=== PATIENT | male | born 1990 | race Caucasian/White ===

== ENCOUNTER 2017-04-23 21:30 | Emergency (ER) | payer SELFPAY ==
--- NOTE | 2017-04-23 21:40 | PDOC ---
History of Present Illness - History of Present Illness Initial Comments: 04/23/17 21:44 The patient is a 26 year old male, with no significant past medical history, who presents to the emergency department with an abscess to his left posterior neck after getting a haircut 2 days ago. The patient states he noticed a pimple to the back of his neck yesterday and attempted to pop the pimple. He reports today the pimple has increased in size and become painful. The patient lives in [place] and is currently visiting his [id number] in the neighborhood. He denies chest pain, shortness of breath, headache and dizziness. He denies fever, chills, nausea, vomit, diarrhea and constipation. He denies dysuria, frequency, urgency and hematuria. Allergies: NKDA <Cecile Menjivar - Last Filed: 04/23/17 21:44> <Robson Woodward - Last Filed: 04/24/17 03:50> - General Chief Complaint: Pain, Acute Stated Complaint: INGROWN HAIR BACK OF NECK POST HAIRCUT Past History <Cecile Menjivar - Last Filed: 04/23/17 21:44> - Past Medical History Other medical history: DENIES - Immunization History Immunization Up to Date: No - Psycho/Social/Smoking Cessation Hx Anxiety: No Suicidal Ideation: No Smoking History: Never smoked Have you smoked in the past 12 months: No Information on smoking cessation initiated: No Hx Alcohol Use: Yes (OCCAS) Drug/Substance Use Hx: No Substance Use Type: None <Robson Woodward - Last Filed: 04/24/17 03:50> - Past Medical History Allergies/Adverse Reactions: Allergies Allergy/AdvReac Type Severity Reaction Status Date / Time No Known Allergies Allergy Verified 04/23/17 21:31 Home Medications: Ambulatory Orders Sulfamethoxazole/Trimethoprim [Bactrim Ds Tablet] 2 each PO BID #40 tablet 04/23 Review of Systems - Review of Systems Able to Perform ROS?: Yes Comments:: 04/23/17 21:44 CONSTITUTIONAL: Absent: fever, chills, diaphoresis, generalized weakness, malaise, loss of appetite HEENT: Absent: rhinorrhea, nasal congestion, throat pain, throat swelling, difficulty swallowing, mouth swelling, ear pain, eye pain, visual Changes CARDIOVASCULAR: Absent: chest pain, syncope, palpitations, irregular heart rate, lightheadedness , peripheral edema RESPIRATORY: Absent: cough, shortness of breath, dyspnea with exertion, orthopnea, wheezing, stridor, hemoptysis GASTROINTESTINAL: Absent: abdominal pain, abdominal distension, nausea, vomiting, diarrhea, constipation, melena, hematochezia GENITOURINARY: Absent: dysuria, frequency, urgency, hesitancy, hematuria, flank pain, genital pain MUSCULOSKELETAL: Absent: myalgia, arthralgia, joint swelling SKIN: (+) progressing painful pimple to posterior neck. Absent: rash, itching, pallor HEMATOLOGIC/IMMUNOLOGIC: Absent: easy bleeding, easy bruising, lymphadenopathy, frequent infections ENDOCRINE: Absent: unexplained weight gain, unexplained weight loss, heat intolerance, cold intolerance NEUROLOGIC: Absent: headache, focal weakness or paresthesias, dizziness, unsteady gait, seizure, mental status changes, bladder or bowel incontinence PSYCHIATRIC: Absent: anxiety, depression, suicidal or homicidal ideation, hallucinations. <Cecile Menjivar - Last Filed: 04/23/17 21:44> *Physical Exam - Vital Signs Last Vital Signs Temp Pulse Resp BP Pulse Ox 98.6 F 114 H 16 143/98 99 04/23/17 21:33 04/23/17 21:33 04/23/17 21:33 04/23/17 21:33 04/23/17 21:33 - Physical Exam Comments: 04/23/17 21:45 GENERAL: Well developed, well nourished. Awake and alert. No acute distress. HEENT: Normocephalic, atraumatic. PERRLA, EOMI. No conjunctival pallor. Sclera are non- icteric. Moist mucous membranes. Oropharynx is clear. NECK: Supple. Full ROM. No JVD. Carotid pulses 2+ and symmetric, without bruits. No thyromegaly. No lymphadenopathy. CARDIOVASCULAR: Regular rate and rhythm. No murmurs, rubs, or gallops. Distal pulses are 2+ and symmetric. MUSCULOSKELETAL Normal range of motion at all joints. No bony deformities or tenderness. No CVA tenderness. EXTREMITIES: No cyanosis. No clubbing. No edema. No calf tenderness. SKIN: (+) 3 cm abscess partially opened on the left posterior neck. Warm and dry. Normal capillary refill. No rashes. No jaundice. NEUROLOGICAL: Alert, awake, appropriate. Cranial nerves 2-12 intact. No deficits to light touch and temperature in face, upper extremities and lower extremities. No motor deficits in the in face, upper extremities and lower extremities. Normoreflexic in the upper and lower extremities. Normal speech. Toes are down- going bilaterally. Gait is normal without ataxia. PSYCHIATRIC: Cooperative. Good eye contact. Appropriate mood and affect. <Cecile Menjivar - Last Filed: 04/23/17 21:44> - Vital Signs Last Vital Signs Temp Pulse Resp BP Pulse Ox 98.6 F 114 H 16 143/98 99 04/23/17 21:33 04/23/17 21:33 04/23/17 21:33 04/23/17 21:33 04/23/17 21:33 <Robson Woodward - Last Filed: 04/24/17 03:50> Medical Decision Making - Medical Decision Making 04/24/17 03:50 i+d with evacuation of pus a/p abscess with some surrounding cellulitis abx <Robson Woodward - Last Filed: 04/24/17 03:50> *DC/Admit/Observation/Transfer - Attestations Scribe Attestion: 04/23/17 21:46 Documentation prepared by Cecile Menjivar, acting as medical billing representative for Robson Woodward MD <Cecile Menjivar - Last Filed: 04/23/17 21:44> <Robson Woodward - Last Filed: 04/24/17 03:50> Diagnosis at time of Disposition: Abscess - Discharge Dispostion Disposition: HOME Condition at time of disposition: Stable - Prescriptions Prescriptions: Sulfamethoxazole/Trimethoprim [Bactrim Ds Tablet] 2 each PO BID #40 tablet - Patient Instructions Printed Discharge Instructions: DI for Incision and Drainage of a Skin Abscess Additional Instructions: Return to ER on Monday for reevaluation
[2017-04-23 21:45] VITALS: BP 143/98; PULSE 114; TEMP 98.6; BMI 29.0
[2017-04-23] MEDS ORDERED: SULFAMETHOXAZOLE/TRIMETHOPRIM 800MG/160MG D.S. TABLET PO ONE (21:46)
[2017-04-23] MEDS ORDERED: SULFAMETHOXAZOLE/TRIMETHOPRIM 800MG/160MG D.S. TABLET ONE (22:01)
== END 2017-04-23 22:05 | disposition home or self-care (01) ==
LOC: FER 21:30
PROC: 0H94XZZ Drainage of Neck Skin, External Approach (ICD-10-PCS; principal; 2017-04-23)
DX: L02.11 Cutaneous abscess of neck (principal)
CPT/HCPCS: 99281-25

== ENCOUNTER 2017-04-25 12:23 | Emergency (ER) | payer SELFPAY ==
[2017-04-25 12:27] VITALS: BP 125/80; PULSE 86; TEMP 98; BMI 29.0
--- NOTE | 2017-04-25 12:52 | PDOC ---
History of Present Illness - General Chief Complaint: Revisit,Wound Recheck Stated Complaint: WOUND CHECK Time Seen by Provider: 04/25/17 12:38 History Source: Patient Exam Limitations: No Limitations - History of Present Illness Initial Comments: 04/25/17 12:52 This patient is a 26-year-old male who was seen in the emergency department 2 nights ago for abscesses likely due to an ingrown hair Wound incised and drained with return of purulent material Pt has applied warm compresses to the area Packing left in place Pt presents today for a wound check No fevers NO chills Tolerating medications PMH: denies PSH: denies Meds: denies ALL: NKDA Social: GENERAL/CONSTITUTIONAL: No: fever, chills, weakness, loss of appetite. HEAD, EYES, EARS, NOSE AND THROAT: Yes: abscess which was incised and drained SKIN: Yes: wound open, with packing in place No: lesions, pallor, rash or easy bruising. NEUROLOGIC: No: headache GENERAL: The patient is in no acute distress. HEAD: Normal with no signs of trauma. SKIN: Left occipital wound measuring approximately 1 cm, packing in place All remaining Purulent material expressed from wound Area surrounding wound is indurated Not warm, minimally tender to palpation 04/25/17 13:09 Past History - Past Medical History Allergies/Adverse Reactions: Allergies Allergy/AdvReac Type Severity Reaction Status Date / Time No Known Allergies Allergy Verified 04/25/17 12:24 Home Medications: Ambulatory Orders Sulfamethoxazole/Trimethoprim [Bactrim Ds Tablet] 2 each PO BID #40 tablet 04/23 Other medical history: DENIES - Immunization History Immunization Up to Date: No - Psycho/Social/Smoking Cessation Hx Anxiety: No Suicidal Ideation: No Smoking History: Never smoked Have you smoked in the past 12 months: No Information on smoking cessation initiated: No Hx Alcohol Use: No Drug/Substance Use Hx: No Substance Use Type: None *Physical Exam - Vital Signs Last Vital Signs Temp Pulse Resp BP Pulse Ox 98 F 86 18 125/80 99 04/25/17 12:23 04/25/17 12:23 04/25/17 12:23 04/25/17 12:23 04/25/17 12:23 Medical Decision Making - Medical Decision Making 04/25/17 12:52 04/25/17 13:11 Expressed an additional 2-3 cc purulent material from the wound No surrounding erythema Wound re packed as it appears to still need to drain Pt to return to the ER in 2-3 days for re evaluation Pt counselled to apply warm compressed *DC/Admit/Observation/Transfer Diagnosis at time of Disposition: Abscess - Discharge Dispostion Disposition: HOME Condition at time of disposition: Stable Admit: No - Referrals Referrals: Lamberto Jones MD [Staff Physician] - - Patient Instructions Printed Discharge Instructions: DI for Skin Abscess, DI for Incision and Drainage of a Skin Abscess Additional Instructions: Thank you for coming to the ER today Please continue applying warm compressed to the area (you can use a warm rag) you can do this three times per day Please monitor yourself for fevers If you get a fever, you must come back to the ER Please continue taking your medications as prescribed Please change packing daily (if you can) If you notice that there is more pus, or the skin around the wound opening is red, please come in to be evaluated as soon as you can Print Language: MOHAWK - Post Discharge Activity Work/School Note: Back to Work
== END 2017-04-25 13:25 | disposition home or self-care (01) ==
LOC: FER 12:23
DX: L02.11 Cutaneous abscess of neck (principal)
CPT/HCPCS: 99282-25

== ENCOUNTER 2017-04-26 23:33 | Inpatient (IN) | payer SELFPAY ==
[2017-04-26 23:39] VITALS: BMI 28.2
--- NOTE | 2017-04-26 23:44 | PDOC ---
History of Present Illness - General Chief Complaint: Wound Stated Complaint: NECK WOUND Time Seen by Provider: 04/26/17 23:38 History Source: Patient Exam Limitations: No Limitations - History of Present Illness Initial Comments: 04/27/17 00:02 This is a 26-year-old male who comes in for a wound check. Patient was here 4 days ago and had incision and drainage of a abscess on his posterior neck. Patient returned 2 days later for removal of the packing and was repacked. Patient now comes back complaining of worsening pain, fever, chills and purulent discharge from the abscess cavity. Patient denies any headache or stiff neck. However history is somewhat limited because patient is using a [employer]. PAST MEDICAL HISTORY: no significant history PAST SURGICAL HISTORY: no significant history FAMILY HISTORY: no pertinant history SOCIAL HISTORY: Pt lives with family and is employed. MEDICATIONS: reviewed ALLERGIES: As per nursing notes Review of Systems General: + fevers and chills, no weakness, no weight loss HEENT: No change in vision. No sore throat,. No ear pain, neck abscess post I and D CardioVascular: No chest pain or shortness of breath Respiratory:No cough, or wheezing. Gastrointestinal: no nausea, vomitting, diarrhea or constipation, No rectal bleeding Genitourinary: No dysuria, hematuria, or frequency Musculoskeletal: No joint or muscle pain or swelling Neurologic: No headache, vertigo, dizziness or loss of consciousness Psychiatric: nor depression Skin: No rashes or easy bruising Endocrine: no increased thirst or abnormal weight change Allergic: no skin or latex allergy All other systems reviewed and normal GENERAL: The patient is awake, alert, and fully oriented, in no acute distress. HEAD: Normal with no signs of trauma. NECK:There is an open wound to the posterior neck that has purulent wound margins and purulence from the abscess cavity. The surrounding area has moderate amount of erythema with tenderness on palpation. EYES: Pupils equal, round and reactive to light, extraocular movements intact, sclera anicteric, conjunctiva clear. EXTREMITIES: Normal range of motion, no edema. NEUROLOGICAL: Normal speech, normal gait. PSYCH: Normal mood, normal affect. SKIN: Warm, Dry, normal turgor, no rashes or lesions noted. 04/27/17 01:42 Assessment plan: This is a 26-year-old male who comes in complaining of a abscess in his neck that was incised and drained 4 days ago, patient returned 2 days ago and check abscess cavity was repacked and here at returns again today. Now patient is complaining of fevers or increasing pain and that the year is a moderate amount of purulent in the abscess cavity and is surrounding cellulitis of the neck. Given the location of the infection I was concerned so patient had a CAT scan done of the neck to rule out deep space infection. There is no evidence of deeper tracking of the abscess and no collection in the deep spaces of the neck. Patient however does have a elevated white count. And he has been on antibiotics for 4 days and failed outpatient treatment. Patient will be admitted to an inpatient bed. Discussed admission with Dr. Holder. Past History - Past Medical History Allergies/Adverse Reactions: Allergies Allergy/AdvReac Type Severity Reaction Status Date / Time No Known Allergies Allergy Verified 04/25/17 12:24 Home Medications: Ambulatory Orders Sulfamethoxazole/Trimethoprim [Bactrim Ds Tablet] 2 each PO BID #40 tablet 04/23 - Immunization History Immunization Up to Date: No - Psycho/Social/Smoking Cessation Hx Anxiety: No Suicidal Ideation: No Smoking History: Unknown if ever smoked Have you smoked in the past 12 months: No Number of Cigarettes Smoked Daily: 0 Information on smoking cessation initiated: No Hx Alcohol Use: No Drug/Substance Use Hx: No Substance Use Type: None *Physical Exam - Vital Signs Last Vital Signs Temp Pulse Resp BP Pulse Ox 99.5 F 96 H 14 131/68 100 04/26/17 23:36 04/26/17 23:36 04/26/17 23:36 04/26/17 23:36 04/26/17 23:36 ED Treatment Course - LABORATORY CBC & Chemistry Diagram: 04/27/17 00:01 04/27/17 00:01 *DC/Admit/Observation/Transfer Diagnosis at time of Disposition: Cellulitis and abscess of neck - Discharge Dispostion Condition at time of disposition: Good Admit: Yes
[2017-04-26] MEDS ORDERED: VANCOMYCIN 1 GRAM (PRE-DOCKED) 1,000 MG/250 ML BAG IVPB ONE (23:48)
[2017-04-26] MEDS ORDERED: PIPERACILLIN/TAZOB 3.375 GM/50 ML PRE-DOCKED IVPB STA (23:49)
[2017-04-27] MEDS ORDERED: VANCOMYCIN 1,000 MG VIAL (RESTRICTED TO ID ONLY) ONE ×2 (00:13→00:14)
[2017-04-27] MEDS ORDERED: PIPERACILLIN/TAZOBACTAM 3.375 GM VIAL IVPB ONE (00:13)
[2017-04-27 01:21] LABS: BASOPHIL 0.6 % (0-2.0); MEAN CELL VOLUME 87.8 fl (80-96); MEAN PLT VOLUME 8.8 fl (7.5-11.1); NEUTROPHILS 50.3 % (42.8-82.8); PLATELET COUNT 313 K/MM3 (134-434); RDW 12.6 % (11.9-15.9); WHITE BLOOD COUNT 12.5 K/mm3 (4.0-10.0)
[2017-04-27 02:06] LABS: ANION GAP 11 (8-16); BILIRUBIN,TOTAL 0.2 mg/dL (0.2-1.0); CALCIUM 9.5 mg/dL (8.5-10.1); CO2 28 mmol/L (21-32); COCKROFT - GAULT 144.8; CREATININE 1.1 mg/dL (0.7-1.3); GLUCOSE,RANDOM 77 mg/dL (74-106); SGOT/AST 18 U/L (15-37); SGPT/ALT 46 U/L (12-78); TOT PROT 7.6 g/dl (6.4-8.2)
[2017-04-27 02:07] LABS: ALK PHOS 70 U/L (45-117)
[2017-04-27 08:39] LABS: MCH 28.9 pg (25.7-33.7); MCHC 33.1 g/dl (32.0-35.9); MEAN CELL VOLUME 87.5 fl (80-96); MEAN PLT VOLUME 8.4 fl (7.5-11.1); PLATELET COUNT 307 K/MM3 (134-434); RDW 11.8 % (11.9-15.9); WHITE BLOOD COUNT 9.5 K/mm3 (4.0-10.8)
[2017-04-27 08:45] LABS: ALBUMIN 3.7 g/dl (3.5-5.0); ALK PHOS 54 U/L (32-92); ANION GAP 7 (8-16); BILIRUBIN,TOTAL 0.5 mg/dl (0.2-1.0); CALCIUM 9.3 mg/dl (8.4-10.2); CO2 25 mmol/L (22-28); CREATININE 0.8 mg/dl (0.6-1.3); GLUCOSE,RANDOM 97 mg/dl (74-106); SGOT/AST 19 U/L (10-42); SGPT/ALT 33 U/L (10-40); TOT PROT 6.7 g/dl (6.4-8.3)
--- NOTE | 2017-04-27 12:06 | CONSULT ---
Consult Consult Specialty:: infectious diseases Referred by:: Reason for Consultation:: neck abscess - History of Present Illness Chief Complaint: neck swelling History of Present Illness: 6-year-old male who comes in for a wound check. Patient was here 4 days ago and had incision and drainage of a abscess on his posterior neck. Patient returned 2 days later for removal of the packing and was repacked. Patient now comes back complaining of worsening pain, fever, chills and purulent discharge from the abscess cavity. Patient denies any headache or stiff neck. patients dressing removed and purulent discharge noted also noted his initial start of the problems - History Source History Provided By: Patient, Medical Record Limitations to Obtaining History: Language Barrier - Alcohol/Substance Use Hx Alcohol Use: No - Smoking History Smoking history: Unknown if ever smoked Have you smoked in the past 12 months: No Aproximately how many cigarettes per day: 0 Home Medications - Allergies Allergies/Adverse Reactions: Allergies Allergy/AdvReac Type Severity Reaction Status Date / Time No Known Allergies Allergy Verified 04/25/17 12:24 - Home Medications Home Medications: Ambulatory Orders Sulfamethoxazole/Trimethoprim [Bactrim Ds Tablet] 2 each PO BID #40 tablet 04/23 Review of Systems - Review of Systems Constitutional: reports: No Symptoms Eyes: reports: No Symptoms HENT: reports: No Symptoms Neck: reports: Tenderness, Other (abscess on the post part of the neck) Cardiovascular: reports: No Symptoms Respiratory: reports: No Symptoms Gastrointestinal: reports: No Symptoms Genitourinary: reports: No Symptoms Musculoskeletal: reports: No Symptoms Integumentary: reports: Erythema, Wound Neurological: reports: No Symptoms Hematology/Lymphatic: reports: No Symptoms Psychiatric: reports: No Symptoms Physical Exam Vital Signs: Vital Signs Temperature 98.6 F 04/27/17 05:47 Pulse Rate 68 04/27/17 05:47 Respiratory Rate 19 04/27/17 05:47 Blood Pressure 114/62 04/27/17 05:47 O2 Sat by Pulse Oximetry (%) 97 04/27/17 07:59 Constitutional: Yes: Well Nourished, Calm, Mild Distress Eyes: Yes: Conjunctiva Clear HENT: Yes: Atraumatic, Other Neck: Yes: Supple, Trachea Midline, Other (no tenderness while moving.no neck rigidity,no other) Cardiovascular: Yes: Regular Rate and Rhythm Respiratory: Yes: Regular, CTA Bilaterally Gastrointestinal: Yes: Normal Bowel Sounds, Soft Musculoskeletal: Yes: WNL Extremities: Yes: WNL Wound/Incision: Yes: Draining, Other (erythema and pain) Neurological: Yes: Alert, Oriented Psychiatric: Yes: Alert Labs: CBC, BMP 04/27/17 07:40 04/27/17 07:40 Imaging - Results Cat Scan: Report Reviewed, Image Reviewed Assessment/Plan after looking at the picture i think patient might have had infected cyst which he might have ruptured causing the infection abscess of post part of the neck wound infection plan will start on unasyn iv oral clinda by monday should be bale to switch to oral will evaluate and decide will need wound care rest as per osman
[2017-04-27] MEDS: CLINDAMYCIN HCL 150 MG CAPSULE (FP) PO SCH ×2 (13:01→17:48)
[2017-04-27] MEDS: AMPICILLIN NA/SULBACTAM NA 100 ML IVPB SCH ×2 (13:01→17:48)
--- NOTE | 2017-04-27 17:13 | HP ---
Admitting History and Physical - Primary Care Physician PCP: Heriberto Ellis - Admission History of Present Illness: 6-year-old male who comes in for a wound check. Patient was here 4 days ago and had incision and drainage of a abscess on his posterior neck. Patient returned 2 days later for removal of the packing and was repacked. Patient now comes back complaining of worsening pain, fever, chills and purulent discharge from the abscess cavity. Patient denies any headache or stiff neck. - Smoking History Smoking history: Unknown if ever smoked Have you smoked in the past 12 months: No Aproximately how many cigarettes per day: 0 - Alcohol/Substance Use Hx Alcohol Use: No Home Medications - Allergies Allergies/Adverse Reactions: Allergies Allergy/AdvReac Type Severity Reaction Status Date / Time No Known Allergies Allergy Verified 04/25/17 12:24 - Home Medications Home Medications: Ambulatory Orders Sulfamethoxazole/Trimethoprim [Bactrim Ds Tablet] 2 each PO BID #40 tablet 04/23 Physical Examination Vital Signs: Vital Signs Temperature 98.5 F 04/27/17 14:53 Pulse Rate 81 04/27/17 14:53 Respiratory Rate 18 04/27/17 14:53 Blood Pressure 134/63 04/27/17 14:53 O2 Sat by Pulse Oximetry (%) 100 04/27/17 14:53 Constitutional: Yes: No Distress HENT: Yes: Atraumatic Neck: Yes: Supple, Other (abcess at the back of neck on left side) Cardiovascular: Yes: Regular Rate and Rhythm Respiratory: Yes: CTA Bilaterally Gastrointestinal: Yes: Normal Bowel Sounds Musculoskeletal: Yes: WNL Extremities: Yes: WNL Edema: No Peripheral Pulses WNL: Yes Neurological: Yes: Alert, Oriented Labs: CBC, BMP 04/27/17 07:40 04/27/17 07:40 Problem List - Problems (1) Cellulitis and abscess of neck Assessment/Plan: iv abx send pus cxs id consult Code(s): L03.221 - CELLULITIS OF NECK L02.11 - CUTANEOUS ABSCESS OF NECK (2) Abscess Code(s): L02.91 - CUTANEOUS ABSCESS, UNSPECIFIED Assessment/Plan Laboratory Tests 04/27/17 04/27/17 04/27/17 00:01 00:01 07:40 WBC 12.5 H 9.5 RBC 5.18 4.95 Hgb 15.0 14.3 Hct 45.5 43.3 MCV 87.8 87.5 MCHC 33.0 33.1 RDW 12.6 11.8 L Plt Count 313 307 MPV 8.8 8.4 Neutrophils % 50.3 Lymphocytes % 32.2 Monocytes % 10.9 H Eosinophils % 6.0 H Basophils % 0.6 Sodium 141 Potassium 4.5 Chloride 102 Carbon Dioxide 28 Anion Gap 11 BUN 20 H Creatinine 1.1 Creat Clearance w eGFR > 60 Random Glucose 77 Calcium 9.5 Total Bilirubin 0.2 AST 18 ALT 46 Alkaline Phosphatase 70 Total Protein 7.6 Albumin 4.0 04/27/17 07:40 WBC RBC Hgb Hct MCV MCHC RDW Plt Count MPV Neutrophils % Lymphocytes % Monocytes % Eosinophils % Basophils % Sodium 138 Potassium 4.4 Chloride 106 Carbon Dioxide 25 Anion Gap 7 L BUN 19 H Creatinine 0.8 Creat Clearance w eGFR > 60 Random Glucose 97 Calcium 9.3 Total Bilirubin 0.5 AST 19 ALT 33 Alkaline Phosphatase 54 Total Protein 6.7 Albumin 3.7 Active Medications Generic Name Dose Route Start Last Admin Trade Name Freq PRN Reason Stop Dose Admin Acetaminophen 650 mg 04/27/17 01:50 Tylenol - PO Q6H PRN FEVER OR PAIN Clindamycin HCl 300 mg 04/27/17 12:15 04/27/17 13:01 Cleocin - PO 300 mg Q6HPO OLGA LIDIA Administration Ampicillin Sodium/Sulbactam Sodium 100 mls @ 200 mls/hr 04/27/17 12:15 13:01 Unasyn 3 Gm (Pre-Docked) IVPB 200 mls/hr Q8H-IV OLGA LIDIA Administration
[2017-04-28] MEDS: CLINDAMYCIN HCL 150 MG CAPSULE (FP) PO SCH ×5 (00:08→23:37)
[2017-04-28] MEDS: AMPICILLIN NA/SULBACTAM NA 100 ML IVPB SCH ×2 (01:16→09:41)
--- NOTE | 2017-04-28 15:24 | PN ---
Progress Note, Physician - Current Medication List Current Medications: Active Medications Acetaminophen (Tylenol -) 650 mg PO Q6H PRN PRN Reason: FEVER OR PAIN Clindamycin HCl (Cleocin -) 300 mg PO Q6HPO OLGA LIDIA Last Admin: 04/28/17 12:15 Dose: 300 mg Ampicillin Sodium/Sulbactam Sodium (Unasyn 3 Gm (Pre-Docked)) 100 mls @ 200 mls /hr IVPB Q8H-IV OLGA LIDIA Last Admin: 04/28/17 09:41 Dose: 200 mls/hr - Objective Vital Signs: Vital Signs Temperature 98.0 F 04/28/17 14:36 Pulse Rate 78 04/28/17 14:36 Respiratory Rate 18 04/28/17 14:36 Blood Pressure 134/74 04/28/17 14:36 O2 Sat by Pulse Oximetry (%) 98 04/28/17 14:36 Labs: CBC, BMP 04/27/17 07:40 04/27/17 07:40
--- NOTE | 2017-04-28 17:40 | PN ---
Progress Note, Physician - Current Medication List Current Medications: Active Medications Acetaminophen (Tylenol -) 650 mg PO Q6H PRN PRN Reason: FEVER OR PAIN Clindamycin HCl (Cleocin -) 300 mg PO Q6HPO [facility] Last Admin: 04/28/17 12:15 Dose: 300 mg - Objective Vital Signs: Vital Signs Temperature 98.0 F 04/28/17 14:36 Pulse Rate 78 04/28/17 14:36 Respiratory Rate 18 04/28/17 14:36 Blood Pressure 134/74 04/28/17 14:36 O2 Sat by Pulse Oximetry (%) 98 04/28/17 14:36 Constitutional: Yes: No Distress HENT: Yes: Atraumatic Neck: Yes: Other (dressing in place) Cardiovascular: Yes: Regular Rate and Rhythm Respiratory: Yes: CTA Bilaterally Gastrointestinal: Yes: Normal Bowel Sounds Extremities: Yes: WNL Neurological: Yes: Alert, Oriented Labs: CBC, BMP 04/27/17 07:40 04/27/17 07:40 Problem List - Problems (1) Cellulitis and abscess of neck Assessment/Plan: po abx send pus cxs id consult dressing change Code(s): L03.221 - CELLULITIS OF NECK L02.11 - CUTANEOUS ABSCESS OF NECK (2) Abscess Assessment/Plan: surgery on board Code(s): L02.91 - CUTANEOUS ABSCESS, UNSPECIFIED Assessment/Plan Laboratory Tests 04/27/17 04/27/17 04/27/17 00:01 00:01 07:40 WBC 12.5 H 9.5 RBC 5.18 4.95 Hgb 15.0 14.3 Hct 45.5 43.3 MCV 87.8 87.5 MCHC 33.0 33.1 RDW 12.6 11.8 L Plt Count 313 307 MPV 8.8 8.4 Neutrophils % 50.3 Lymphocytes % 32.2 Monocytes % 10.9 H Eosinophils % 6.0 H Basophils % 0.6 Sodium 141 Potassium 4.5 Chloride 102 Carbon Dioxide 28 Anion Gap 11 BUN 20 H Creatinine 1.1 Creat Clearance w eGFR > 60 Random Glucose 77 Calcium 9.5 Total Bilirubin 0.2 AST 18 ALT 46 Alkaline Phosphatase 70 Total Protein 7.6 Albumin 4.0 04/27/17 07:40 WBC RBC Hgb Hct MCV MCHC RDW Plt Count MPV Neutrophils % Lymphocytes % Monocytes % Eosinophils % Basophils % Sodium 138 Potassium 4.4 Chloride 106 Carbon Dioxide 25 Anion Gap 7 L BUN 19 H Creatinine 0.8 Creat Clearance w eGFR > 60 Random Glucose 97 Calcium 9.3 Total Bilirubin 0.5 AST 19 ALT 33 Alkaline Phosphatase 54 Total Protein 6.7 Albumin 3.7 Active Medications Generic Name Dose Route Start Last Admin Trade Name Freq PRN Reason Stop Dose Admin Acetaminophen 650 mg 04/27/17 01:50 Tylenol - PO Q6H PRN FEVER OR PAIN Clindamycin HCl 300 mg 04/27/17 12:15 04/27/17 13:01 Cleocin - PO 300 mg Q6HPO OLGA LIDIA Administration Ampicillin Sodium/Sulbactam Sodium 100 mls @ 200 mls/hr 04/27/17 12:15 13:01 Unasyn 3 Gm (Pre-Docked) IVPB 200 mls/hr Q8H-IV OLGA LIDIA Administration
[2017-04-28] MEDS: ACETAMINOPHEN 325 MG TABLET (FP) PO PRN (17:43)
[2017-04-29] MEDS: CLINDAMYCIN HCL 150 MG CAPSULE (FP) PO SCH ×3 (05:43→18:47)
[2017-04-29] MEDS: ACETAMINOPHEN 325 MG TABLET (FP) PO PRN (11:08)
[2017-04-29 14:27] VITALS: BP 134/78; PULSE 81; TEMP 98.1
--- NOTE | 2017-04-29 15:45 | CONSULT ---
Consult Consult Specialty:: General Surgery Referred by:: Dunia Ellis MD Reason for Consultation:: MRSA posterior neck abscess - History of Present Illness Chief Complaint: left posterior neck wound History of Present Illness: 26yo [place] M in [place] x 1m living with sister and her family, had haircut and developed hair bump/folliculitis - thought to be a pimple - on his posterior left neck. He squeezed it, and it became infected. Sister recognized redness, swelling, hardness to area, purulent drainage, but he did not want to come to doctor. When he developed a fever, they brought him to ER. In ER, his wbc was 12.5, and the ER doc incised and drained the site of some pus, packed it , and Rx Bactrim. They were told to clean it, but packing was left in for two days or more, and sister then noted green coloring to drainage/dressing and brought him back to ER. CT was done, which showed cellulitis in region but no drainable collection. He was admitted after packing was changed and started on IV Unasyn and PO Clindamycin. Culture was sent, which returned MRSA. Sensitivities today show it is Clinda sensitive without inducible resistance. Unasyn was stopped. His wbc had dropped to 9, pain has resolved, site was repacked yesterday. No fevers. Surgery is consulted to evaluate if additional intervention is warranted. - History Source History Provided By: Patient, Family Member Limitations to Obtaining History: Language Barrier ([id number] interpretation assisted by Maida Pettit cytogenetic technician (hospital mortising machine operator)) - Past Medical History Dermatology: Yes: Other (poison anton couple weeks ago left arm) Additional Medical History: denies all - has not seen doctor almost ever - Past Surgical History Past Surgical History: Yes: None - Alcohol/Substance Use Hx Alcohol Use: Yes (beer sometimes) History of Substance Use: reports: None - Smoking History Smoking history: Never smoked Have you smoked in the past 12 months: No Aproximately how many cigarettes per day: 0 - Social History Usual Living Arrangement: Other (staying with sister and her family) ADL: Independent Place of : Other ([place] Came to [place]year[place] 1 month ago Home Medications - Allergies Allergies/Adverse Reactions: Allergies Allergy/AdvReac Type Severity Reaction Status Date / Time No Known Allergies Allergy Verified 04/25/17 12:24 - Home Medications Home Medications: Ambulatory Orders Sulfamethoxazole/Trimethoprim [Bactrim Ds Tablet] 2 each PO BID #40 tablet 04/23 Family Disease History - Family Disease History Family History: Unremarkable Review of Systems - Review of Systems Constitutional: reports: Fever (last week). denies: Chills Eyes: denies: Blurred Vision, Double Vision HENT: denies: Hearing Loss, Throat Pain Neck: denies: Pain on Movement, Swollen Glands Cardiovascular: denies: Chest Pain, Palpitations Respiratory: denies: Cough, SOB Gastrointestinal: denies: Abdominal Pain, Constipation, Diarrhea, Nausea, Vomiting Genitourinary: denies: Burning, Dysuria Musculoskeletal: denies: Back Pain, Muscle Pain Integumentary: reports: Rash (recent poison anton - now healed, left arm), Wound ( left posterior neck) Neurological: denies: Dizziness, Headache Hematology/Lymphatic: denies: Excessive Bleeding, Swollen Glands Physical Exam Vital Signs: Vital Signs Temperature 98.1 F 04/29/17 14:26 Pulse Rate 81 04/29/17 14:26 Respiratory Rate 16 04/29/17 14:26 Blood Pressure 134/78 04/29/17 14:26 O2 Sat by Pulse Oximetry (%) 100 04/29/17 14:26 Constitutional: Yes: Well Nourished, No Distress, Calm Eyes: Yes: Conjunctiva Clear, EOM Intact HENT: Yes: Atraumatic, Normocephalic Cardiovascular: Yes: Regular Rate and Rhythm. No: Murmur Respiratory: Yes: Regular, CTA Bilaterally Gastrointestinal: Yes: Soft. No: Tenderness ...Rectal Exam: Yes: Deferred Extremities: Yes: Other (faint residual visible from recent poison anton rash on left arm, no lesions). No: Erythema Peripheral Pulses WNL: Yes Integumentary: Yes: Incision (left neck). No: Rash (healed left arm) Wound/Incision: Yes: Dressing Removed, Bleeding (scant), Unapproximated, Other ( open wound just under left neck hairline; clean and granulating, tiny bit of yellow slough removed with cotton-tip applicator, measures about 1.6cm x 0.4cm x 1cm deep; 1/4" packing removed with scant bleeding; periwound clean with minimal erythema, no surrounding induration, nontender). No: Draining Neurological: Yes: Alert, Oriented Labs: CBC, BMP 04/27/17 07:40 04/27/17 07:40 wbc had been ~12 on initial presentation to ER prior to I&D and return for admission Imaging - Results Cat Scan: Report Reviewed, Image Reviewed (left posterior neck with cellulitis but no drainable collection identified) Problem List - Problems (1) Furuncle of neck Assessment/Plan: Pt with MRSA furuncle/abscess with cellulitis of left posterior neck occurring after a haircut and squeezing hair bump/folliculitis. Initially failed outpatient Bactrim despite I&D, though MRSA appears sensitive; responding well to Clindamycin po. Wound is clean and granulating, improved from presentation per sister and photos shown to me. Cellulitis resolving very well. Agree with completing full course of Clinda - would d/c with 7 more days of Clinda, daily shower after removing packing, and repacking afterwards (sister can do) with 1/4" plain packing (dressing redone by me today). Keep covered with gauze and tape until healed. Pt can f/u with medicine or myself in 10-14 days to ensure healing. Gave them my card with office # to make appt if desired: [phone]. Please send pt home with remaining 1/4" packing and fresh suture removal kit (forceps and scissors), for sister to continue dressing changes. Thank you for the opportunity to participate in the care of this patient. Code(s): L02.12 - FURUNCLE OF NECK (2) Cellulitis and abscess of neck Code(s): L03.221 - CELLULITIS OF NECK L02.11 - CUTANEOUS ABSCESS OF NECK (3) Methicillin resistant Staphylococcus aureus infection as the cause of diseases classified elsewhere Code(s): B95.62 - METHICILLIN RESIS STAPH INFCT CAUSING DISEASES CLASSD [id number]
--- NOTE | 2017-04-29 17:56 | DS ---
Physical Examination Vital Signs: Vital Signs Temperature 98.1 F 04/29/17 14:26 Pulse Rate 81 04/29/17 14:26 Respiratory Rate 16 04/29/17 14:26 Blood Pressure 134/78 04/29/17 14:26 O2 Sat by Pulse Oximetry (%) 100 04/29/17 14:26 Constitutional: Yes: No Distress HENT: Yes: Atraumatic Neck: Yes: Other (wound look good dressing in place) Cardiovascular: Yes: Regular Rate and Rhythm Respiratory: Yes: CTA Bilaterally Gastrointestinal: Yes: Normal Bowel Sounds Extremities: Yes: WNL Neurological: Yes: Alert, Oriented Labs: CBC, BMP 04/27/17 07:40 04/27/17 07:40 Discharge Summary Reason For Visit: CELLULITIS & ABSCESS Current Active Problems Cellulitis and abscess of neck (Acute) Cellulitis due to MRSA (Acute) Furuncle of neck (Acute) MRSA infection (Acute) Methicillin resistant Staphylococcus aureus infection as the cause of diseases classified elsewhere (Acute) Condition: Good - Instructions Diet, Activity, Other Instructions: daily dressing change see your pmd 1 week - Home Medications Comprehensive Discharge Medication List: Ambulatory Orders Sulfamethoxazole/Trimethoprim [Bactrim Ds Tablet] 2 each PO BID #40 tablet 04/23 Clindamycin [Cleocin -] 300 mg PO Q6HPO #28 tab 04/29/17
== END 2017-04-29 18:56 | disposition home or self-care (01) | DRG 383 ==
LOC: FER 23:33 → FM/S 04-27 02:23
PROVIDERS: ADMIT Internal Medicine; ATTEND Internal Medicine
DX: L03.221 Cellulitis of neck (principal); L02.12 Furuncle of neck; B95.62 Methicillin resistant Staphylococcus aureus infection as the cause of diseases classified elsewhere; L02.11 Cutaneous abscess of neck
CPT/HCPCS: 36415; 70490-TC; 80053; 83036; 85025; 85027; 87040; 87070; 87186; 87205; 99284-25